=== PATIENT | male | born 1980 | race Hispanic/Latino ===

== ENCOUNTER 2018-06-03 00:15 | Emergency (ER) | payer SELFPAY ==
[2018-06-03 00:23] VITALS: BP 113/80; PULSE 92; RESP 16; TEMP 98.5; O2SAT 95
== END 2018-06-03 01:40 | disposition left against medical advice (07) ==
LOC: H.ER 00:15
DX: Z02.89 Encounter for other administrative examinations (principal)

== ENCOUNTER 2018-06-07 23:03 | Emergency (ER) | payer OTHER ==
[2018-06-08] VITALS: O2SAT 97
--- NOTE | 2018-06-08 01:31 | ED PDOC ---
Upper Extremity Pain/Injury Time Seen by Provider: 06/08/18 00:13 Chief Complaint (Nursing): Upper Extremity Problem/Injury Chief Complaint (Provider): Left Arm Paresthesias, Shoulder Pain History Per: Patient History/Exam Limitations: no limitations Onset/Duration Of Symptoms: Days (x4) Current Symptoms Are (Timing): Intermittent Episodes Additional Complaint(s): 38 year old male presents to the ED for evaluation of intermittent episode of paresthesias down his left arm for the last four days. He reports presenting to the ER at onset of symptoms, but eloped from the waiting room because symptoms resolved. 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 Otherwise, (-) fever, (-) change in speech / cognition, (-) family hx stroke, (-) changes in vision, (-) weakness, (-) nausea, (-) vomiting. PMD: Jac[place] in [facility], 1928–1983 Past Medical History Reviewed: Historical Data, Nursing Documentation, Vital Signs Vital Signs: Last Vital Signs Temp 98.3 F 06/07/18 23:57 Pulse 81 06/07/18 23:57 Resp 16 06/07/18 23:57 BP 112/79 06/07/18 23:57 Pulse Ox 97 06/07/18 23:57 - Medical History Other PMH: renal colic - Surgical History Other surgeries: right shoulder surg; multiple kidney stents - Family History Family History: States: No Known Family Hx Denies: Stroke - Social History Current smoker - smoking cessation education provided: Yes (vape) Alcohol: None Drugs: Denies - Home Medications Home Medications: Ambulatory Orders Medication Instructions Recorded Cyclobenzaprine [Cyclobenzaprine 10 mg PO Q6 PRN #12 tab 06/08/18 HCl] Naproxen 500 mg PO BID PRN #20 tab 06/08/18 - Allergies Allergies/Adverse Reactions: Allergies Allergy/AdvReac Type Severity Reaction Status Date / Time No Known Allergies Allergy Verified 06/03/18 00:23 Review of Systems ROS Statement: Except As Marked, All Systems Reviewed And Found Negative Constitutional: Negative for: Fever Eyes: Negative for: Vision Change Gastrointestinal: Negative for: Nausea, Vomiting Musculoskeletal: Positive for: Neck Pain (left sided), Shoulder Pain (left) Neurological: Positive for: Other (paresthesias down left arm, worse with movement). Negative for: Weakness, Change in Speech (or cognition) Physical Exam - Reviewed Nursing Documentation Reviewed: Yes Vital Signs Reviewed: Yes - Physical Exam Comments: GENERALIZED APPEARANCE:Patient is awake, alert, oriented x3 in no acute distress. Resting comfortably. SKIN: Warm, dry; (-) cyanosis. HEAD: Normal inspection. EYES: (-) conjunctival pallor. ENMT: Mucous membranes moist. Airway patent, (-) stridor. NECK: Supple, FROM(+) left paracervical tenderness, (+) left trapezius tenderness, (-) stiffness, (-) lymphadenopathy. CHEST AND RESPIRATORY: (-) rales, (-) rhonchi, (-) wheezes; breath sounds equal bilaterally. Respirations even and nonlabored. HEART AND CARDIOVASCULAR: (-) irregularity ABDOMEN AND GI: Soft; (-) distention, (-) tenderness, (-) rebound, (-) guarding EXTREMITIES: Full ROM bilateral shoulders, (+) pain with abduction and extension of left shoulder, (+) diffuse tenderness to left shoulder. (-) deformity; (-) edema. Distal pulses: present. NEURO AND PSYCH: Mental status as above. 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 Oil Expeller strength symmetric. Gait: normal. Speech: clear. - ECG O2 Sat by Pulse Oximetry: 97 (RA) Pulse Ox Interpretation: Normal Medical Decision Making Medical Decision Making: Initial Impression: radicular pain left upper extremity, acute shoulder pain Time: 26 Initial Plan: --Toradol 30mg IM --Left shoulder XR --Reevaluation 129 Shoulder XR: (-) fracture (-) dislocation Patient notified that official radiology reading will be available within 24 hours and that he would be notified of any discrepancies via phone. On re-evaluation, patient reports improvement of symptoms. On exam, patient remains AAOx3, in no acute distress. Lungs clear to auscultation, cardiac RRR, repeat neuro exam shows no focal findings. VSS, stable for discharge. Lab/Diagnostic results d/w the patient in great detail. Diagnosis of radiculopathy of the left upper extremity, left shoulder pain d/w the patient. Based on history, exam and diagnostic results, plan will be for outpatient follow up with PMD/ortho. Patient instructed to follow-up with pmd / referral provided / the clinic in 1- 2 days without fail. Advised to take medication as prescribed. Return to the emergency room at any time for any new or worsening symptoms. Patient states he fully agrees with and understands discharge instructions. States that he agrees with the plan and disposition. Verbalized and repeated discharge instructions and plan. I have given the patient opportunity to ask any additional questions. Scribe Attestation: Documented by Lea Nazario, acting as a scribe for Modesta Delcid PA-C. Provider Scribe Attestation: All medical record entries made by the Scribe were at my direction and personally dictated by me. I have reviewed the chart and agree that the record accurately reflects my personal performance of the history, physical exam, medical decision making, and the department course for this patient. I have also personally directed, reviewed, and agree with the discharge instructions and disposition. Disposition - Clinical Impression Clinical Impression: Shoulder pain, acute, Radiculopathy, cervical, Radicular pain of left upper extremity - Patient ED Disposition Is Patient to be Admitted: No Counseled Patient/Family Regarding: Studies Performed, Diagnosis, Need For Followup, Rx Given - Disposition Referrals: Nasrin Oliver MD [Staff Provider] - Disposition: Routine/Home Disposition Time: 01:30 Condition: STABLE Additional Instructions: The emergency medical care you received today was directed towards the acute presenting symptoms. If you were prescribed any medication, please fill it and give as directed. It may take several days for your symptoms to resolve. Return to the Emergency Department at any time if symptoms worsen, do not improve, or if any other problems arise. Please contact your doctor in 2 days for re-evaluation and follow up / or call one of the physicians/clinics you have been referred to that are listed on the Patient Visit Information form that is included in your discharge packet. Bring any paperwork you were given at discharge with you along with any medications to your follow up visit. Our treatment cannot replace ongoing medical care by a primary care provider (PCP) outside of the emergency department. Prescriptions: Cyclobenzaprine [Cyclobenzaprine HCl] 10 mg PO Q6 PRN #12 tab PRN Reason: Muscle Spasm Naproxen 500 mg PO BID PRN #20 tab PRN Reason: Pain, Moderate (4-7) Instructions: Neuropathic Pain, Radiculopathy (DC), Shoulder Pain (DC) Forms: [facility] (Serbian) Print Language: ZIMBABWEAN - POA Present On Arrival: None
[2018-06-08 03:52] VITALS: BP 128/85; PULSE 71; RESP 18; TEMP 98.1
--- NOTE | 2018-06-08 10:38 | RAD ---
Date of service: 06/08/2018 PROCEDURE: Radiographs of the Left Shoulder HISTORY: joint pain, radiculopathy COMPARISON: No prior. FINDINGS: BONES: No acute fracture or destructive bony lesion identified. JOINTS: Normal. Glenohumeral and acromioclavicular joints preserved. No osteoarthritis. SOFT TISSUES: Normal. OTHER FINDINGS: Incidental calcified granuloma or other calcification is seen at the left upper lung zone or within chest soft tissues exclusive of the low left upper lobe. IMPRESSION: No acute fracture, subluxation or dislocation left shoulder.
== END 2018-06-08 02:10 | disposition home or self-care (01) ==
LOC: H.ER 23:03
DX: M54.12 Radiculopathy, cervical region (principal)
CPT/HCPCS: 73030; 96372; 99283; J1885

== ENCOUNTER 2018-06-24 08:27 | Emergency (ER) | payer OTHER ==
[2018-06-24 08:35] VITALS: TEMP 98.6
--- NOTE | 2018-06-24 08:52 | ED PDOC ---
HPI: Chest Pain Time Seen by Provider: 06/24/18 08:38 Chief Complaint (Nursing): Chest Pain Chief Complaint (Provider): Chest Pain History Per: Patient History/Exam Limitations: no limitations Onset/Duration Of Symptoms: Days (x1) Current Symptoms Are (Timing): Still Present Additional Complaint(s): 38 year old male, with a PMHx of pre-diabetes (taking Metformin), presenting for evaluation of chest tightness associated with palpitations, shortness of breath, and dizziness x1 day. Patient states his symptoms began while driving to work this morning and reports a history of similar symptoms in the past. Patient reports having a cardiac CT angio which was negative, as well as a 24 hour Holtoro monitor, which was negative, within the past 6 months. Patient states he works a strenuous job at [employer]. Past Medical History Reviewed: Historical Data, Nursing Documentation, Vital Signs Vital Signs: Last Vital Signs Temp 98.6 F 06/24/18 08:34 Pulse 93 H 06/24/18 08:34 Resp 19 06/24/18 08:34 BP 134/85 06/24/18 08:34 Pulse Ox 99 06/24/18 08:34 - Medical History Other PMH: Pre-Diabetes (takes Metformin) - Surgical History Surgical History: No Surg Hx - Family History Family History: States: Unknown Family Hx Denies: Stroke - Home Medications Home Medications: Ambulatory Orders Medication Instructions Recorded Cyclobenzaprine [Cyclobenzaprine 10 mg PO Q6 PRN #12 tab 06/08/18 HCl] Naproxen 500 mg PO BID PRN #20 tab 06/08/18 Non-Formulary 1 ea .ROUTE Q6 #1 ea 06/24/18 - Allergies Allergies/Adverse Reactions: Allergies Allergy/AdvReac Type Severity Reaction Status Date / Time No Known Allergies Allergy Verified 06/24/18 08:45 Review of Systems ROS Statement: Except As Marked, All Systems Reviewed And Found Negative Cardiovascular: Positive for: Palpitations, Other (chest tightness) Respiratory: Positive for: Shortness of Breath Neurological: Positive for: Dizziness Physical Exam - Reviewed Nursing Documentation Reviewed: Yes Vital Signs Reviewed: Yes - Physical Exam Appears: Positive for: Non-toxic, No Acute Distress Head Exam: Positive for: ATRAUMATIC, NORMAL INSPECTION, NORMOCEPHALIC Skin: Positive for: Normal Color, Warm, Dry. Negative for: Rash Eye Exam: Positive for: EOMI, Normal appearance, PERRL ENT: Positive for: Normal ENT Inspection Neck: Positive for: Normal, Painless ROM, Supple Cardiovascular/Chest: Positive for: Regular Rate, Rhythm. Negative for: Murmur Respiratory: Positive for: Normal Breath Sounds. Negative for: Respiratory Distress Gastrointestinal/Abdominal: Positive for: Normal Exam, Soft. Negative for: Tenderness, Guarding, Rebound Back: Positive for: Normal Inspection. Negative for: L CVA Tenderness, R CVA Tenderness, Vertebral Tenderness Extremity: Positive for: Normal ROM. Negative for: Pedal Edema, Deformity Neurologic/Psych: Positive for: Alert, Oriented. Negative for: Motor/Sensory Deficits - Laboratory Results Result Diagrams: 06/24/18 08:54 06/24/18 08:54 - ECG O2 Sat by Pulse Oximetry: 99 (RA) Pulse Ox Interpretation: Normal Medical Decision Making Medical Decision Makin Plan: -CMP -TROPONIN -CBC -CXR -Reevaluation Scribe Attestation: Documented by Carlos Enrique Del Real, acting as a scribe for Hill Umana MD. Provider Scribe Attestation: All medical record entries made by the Scribe were at my direction and personally dictated by me. I have reviewed the chart and agree that the record accurately reflects my personal performance of the history, physical exam, medical decision making, and the department course for this patient. I have also personally directed, reviewed, and agree with the discharge instructions and disposition. Disposition - Clinical Impression Clinical Impression: Chest pain, Anxiety - Patient ED Disposition Is Patient to be Admitted: No Counseled Patient/Family Regarding: Studies Performed, Diagnosis, Need For Followup, Rx Given - Disposition Disposition: Routine/Home Disposition Time: 11:15 Condition: FAIR Prescriptions: Non-Formulary 1 ea .ROUTE Q6 #1 ea Instructions: Chest Pain, Anxiety, Adult (DC) Forms: [facility] (Indonesian)
[2018-06-24 09:37] LABS: ALB/GLOB RATIO 1.3 (1.0-2.1); ALBUMIN 4.7 g/dL (3.5-5.0); ALT/SGPT 58 U/L (21-72); AST/SGOT 46 U/L (17-59); BLOOD UREA NITROGEN 16 mg/dl (9-20); CALCIUM 9.7 mg/dL (8.4-10.2); GFR NON-AFRICAN AMERICAN > 60
[2018-06-24 09:42] LABS: BASO # 0.1 K/uL (0.0-0.2); BASO % 0.7 % (0.0-2.0); EOS # 0.5 K/uL (0.0-0.7); EOS % 6.3 % (0.0-4.0); HEMOGLOBIN 16.5 g/dL (12.0-18.0); LYMPH # 2.3 K/uL (1.0-4.3); MEAN CELL VOLUME 84.2 fl (80.0-94.0); MEAN CORPUSCULAR HGB CONC 34.4 g/dL (33.0-37.0); MEAN PLATELET VOLUME 8.4 fl (7.2-11.7); MONO # 0.5 K/uL (0.0-0.8); MONO % 6.1 % (0.0-10.0); NEUT # 4.3 K/uL (1.8-7.0); NEUT % 56.9 % (50.0-75.0); NRBC % 0.6 % (0.0-0.0); RBC 5.71 Mil/uL (4.40-5.90); RED CELL DISTRIBUTION WIDTH 13.5 % (11.5-14.5); WHITE BLOOD COUNT 7.6 K/uL (4.8-10.8)
--- NOTE | 2018-06-24 09:53 | RAD ---
Date of service: 06/24/2018 HISTORY: chest pain COMPARISON: No prior. TECHNIQUE: Chest PA and lateral FINDINGS: LUNGS: No active pulmonary disease. PLEURA: No significant pleural effusion identified. No pneumothorax apparent. CARDIOVASCULAR: No aortic atherosclerotic calcification present. Normal cardiac size. No pulmonary vascular congestion. OSSEOUS STRUCTURES: No significant abnormalities. VISUALIZED UPPER ABDOMEN: Normal. OTHER FINDINGS: None. IMPRESSION: No active disease.
[2018-06-24 11:37] VITALS: BP 137/80; PULSE 81; RESP 17; O2SAT 100
== END 2018-06-24 11:20 | disposition home or self-care (01) ==
LOC: H.ER 08:27
DX: R07.89 Other chest pain (principal); F41.9 Anxiety disorder, unspecified; E11.9 Type 2 diabetes mellitus without complications